=== PATIENT | female | born 1990 | race Hispanic/Latino ===

== ENCOUNTER → 2023-08-19 | Outpatient (CLI) | payer OTHER, SELFPAY ==
--- OUTSIDE RECORDS SUMMARY | 2023-08-19 15:11 | XMS RPT_ITS | CCD ---
Author Name Unknown Address [address] [place] [address] Organization [facility] Care Team Providers Care Wash Helper Name Role Phone Celso Gupta Admitting Unavailable Celso Gupta Attending Unavailable No Doctor Assigned, N[facility] Primary [facility] Unavail able YELENA ESPOSITO Attending Unavailable Results Test Name Value Interpretation Reference Range Facil ity Encounters Encounter Date Encounter Type Care Provider Facility Start: 05-24-2023 End: 05-24-2023 ambulatory YELENA ESPOSITO Facility:[facility] Start: 11-06-2018 End: 11-06-2018 Emergency department patient visit Celso Gupta Facility:[facility] Payers Date Payer Category Payer [employer] 2017 [employer] [id number] 1992 Unknown [id number] Progress note 05-24-2023 Note Date & Type Note Facility 05-24-2023 Note HNO ID: [id number] Author: Yleena Esposito DO Service: ? Author Type: Physician Type: Progress Notes Filed: 05/24/2023 12:54 PM Note Text: Family Medicine History Office Visit DATE of SERVICE: May 24, 2023 TIME of SERVICE: 10:43 AM PRIMARY CARE PHYSICIAN: No primary care provider on file. CHIEF COMPLAINT: Complains of upper respiratory symptoms. HPI: This is a 33 year old female who presents with complains of fatigue, body aches, chills, cough. Has this condition for couple of weeks, 1 week ago was treated with Z-Xavi without any improvement. COVID test/influenza test obtained, will call patient with results and treatment recommendations if needed Meantime patient was started on Mucinex, Medrol Dosepak, albuterol inhaler. She was advised to stay well-hydrated, get plenty of rest, take multivitamins. Advised to stay home, wear mask in public places until she knows results of her COVID/influenza testing. PAST MEDICAL HISTORY Diagnosis Date History of BCG vaccination 07/02/2014 PAST SURGICAL HISTORY Procedure Laterality Date DILATION AND CURETTAGE DXAND/THER NONOBSTETRIC 04/04 Dilation AND curettage FAMILY HISTORY Problem Relation Age of Onset None Mother None Father None Sister None Brother Diabetes Paternal Grandmother Social History Tobacco Use Smoking status: Never Substance Use Topics Alcohol use: No Drug use: No Current Outpatient Medications on File Prior to Visit Medication Sig promethazine (PHENERGAN) 25 mg tablet Take 1 tablet by mouth every 6 hours as needed. (Patient not taking: Reported on 05/24/2023) No current facility-administered medications on file prior to visit. ALLERGIES No Known Allergies BP 102/69 Pulse 97 Temp 37 ?C (98.6 ?F) Wt 76.2 kg (168 lb) LMP 06/25/2014 SpO2 97% Depression: Not on file COMPLETE REVIEW OF SYSTEMS: General: Denies fever,+ chills ,no weight loss, +fatigue. Eyes: Denies visual loss, eye pain,discharge ENT: + upper respiratory infection symptoms. No hearing problems. Skin: Denies rashes and skin lesions. Chest: Denies chest pain,shortness of breath,palpitations. + Dry cough. Abdomen: Denies abdominal pain, nausea, vomiting,diarrhea and constipation. Denies melena/hematochezia. Genitourinary: Denies dysuria, frequency, polyuria. Musculoskeletal: Denies muscle aches,joints pain. Neuropsychiatric: Denies headache.Denies weakness,seizures. Denies memory changes,depression,dizziness,paraesthesia s. PHYSICAL EXAM: CONSTITUTIONAL: WDWN, Alert x 3, in no distress SKIN: Warm, dry, good turgor, no rashes in visible areas EYE: PERRLA. Conjunctiva clear, lids normal ENMT: Lips without lesions, oropharynx erythematous/PND,TM normal b/l Nasal mucosa with edema/erythema and clear nasal drainage. NECK: Trachea midline, no masses, no thyromegaly RESPIRATORY: Unlabored respiratory effort. Lungs clear to auscultation, coarse breathing, no wheezes, no rhonchi CARDIOVASCULAR: Normal S1, S2, no murmur, no edema ABDOMEN: Soft, non-tender, no masses, no hepatosplenomegaly EXTREMITIES: No C/C/E. Pulses normal. NEURO EXAM: No motor or sensory deficit. Normal gait and strength, reflexes are adequate PSYCH: Alert and oriented X 3, normal affect and mood ASSESSMENT AND PLAN: (J06.9) URI with cough and congestion (primary encounter diagnosis) Plan: guaiFENesin (MUCINEX) 600 mg 12 hr tablet, methylPREDNISolone (MEDROL, XAVI,) 4 mg Dose-Pack, albuterol HFA (PROVENTIL HFA, VENTOLIN HFA) 90 mcg/actuation inhaler Advised to stay well-hydrated, get plenty of rest, gargle with warm slightly salty water, take vitamin C /zinc/magnesium supplements, new medication as prescribed, follow-up in 1 week if not improved. I spent a total of 30 minutes on the date of the service which included preparing to see the patient, [id number] patient care, completing clinical documentation, obtaining and/or reviewing separately obtained history, performing a medically appropriate examination, counseling and educating the patient/family/caregiver, ordering medications, tests, or procedures, and care coordination (not separately reported). [facility] Summary Purpose Family History No Family History Records FoundNo Family History Records Found Advance Directives No Advanced Directives Records FoundNo Advanced Directives Records Found Additional Source Comments INFORMATION SOURCE (unrecogn ized section and content) DATE CREATED AUTHOR AUTHOR'S DESMOND ATBARBARA 05/28/2023 [facility] FOR RECORDS PERTAINING TO PATIENTS WHO ARE OR HAVE BEEN ENROLLED IN A CHEMICAL DEPENDENCY/SUBSTANCEABUSE PROGRAM, SOME INFORMATION MAY BE OMITTED. This clinical summary was aggregated from multiple sources. Caution should be exercised in using it in the provision of clinical care. This summary normalizes information from multiple sources, and as a consequence, information in this document may materially change the coding, format and clinical context of patient data. In addition, data may be omitted in some cases. CLINICAL DECISIONS SHOULD BE BASED ON THE PRIMARY CLINICAL RECORDS. [employer] provides no warranty or guarantee of the accuracy or completeness of information in this document.
[2023-08-19 17:36] LABS: Absolute Lymphocyte Count 1.53 X10^3/uL (0.83-4.51); Absolute Neutrophil Count 4.9 X10^3/uL (2.0-7.7); Basophil# 0.04 X10^3/uL; Basophil% 0.6 % (0-1); Eosinophils% 1.4 % (0-5); Hematocrit 40.1 % (37-47); Hemoglobin 13.3 g/dL (12.0-15.0); Lymphocyte # 1.53 X10^3/ul (0.83-4.51); Lymphocyte % 21.8 % (19-41); Mean Corp Hgb Conc 33.2 g/dL (32-36); Mean Corpuscular Hgb 29.5 pg (27.0-32.0); Mean Corpuscular Volume 88.9 fL (81-99); Mean Platelet Vol. 10.4 fl (6.2-12.0); Monocyte# 0.43 X10^3/uL; Monocyte% 6.1 % (0-10); NRBC Flagged by Analyzer 0 % (0-5); Neutrophil # 4.89 X10^3/uL (2.7-7.7); Neutrophil % 69.7 % (47-70); Platelet Count 333 K/mm3 (150-450); RBC Distribution Width CV 12.6 % (11.6-14.6); RBC Distribution Width SD 40.6 fl (35.1-43.9); Red Blood Count 4.51 M/mm3 (4.2-5.4)
[2023-08-19 17:59] LABS: AST(SGOT) 15 U/L (15-37); Alanine Aminotransfer ALT/SGPT 23 U/L (13-56); Albumin, Serum 3.7 g/dL (3.2-5.0); Alkaline Phosphatase 67 U/L (45-117); Anion Gap 7 (5-15); BUN 10 mg/dL (7-18); BUN/Creat Ratio 15.8 RATIO (10-20); Calcium,Total 8.6 mg/dL (8.5-10.1); Chloride 107 mmol/L (98-107); Cholesterol 191 mg/dL (200); Creatinine, Serum 0.63 mg/dL (0.55-1.02); EST Glomerular Filtration Rate 116 mL/min (>60); Est Glom Filt Rate - Afr Amer 141 mL/min (>60); Globulin 3.6 g/dL (2.2-4.2); Glucose 82 mg/dL (74-106); High Density Lipoprotein 58 mg/dL; Potassium 3.6 mmol/L (3.5-5.1); Protein, Total 7.3 g/dL (6.4-8.2); Sodium Level 140 mmol/L (136-145); Thyroid Stim Hormone (TSH) 2.58 uIU/mL (0.358-3.74); Triglycerides 94 mg/dL; Very Low Density Lipoprotein 19 mg/dL (5-40)
== END | disposition home or self-care (01) ==
LOC: MFPLAB 14:45
PROVIDERS: PCP Family Medicine; Visit Provider Family Medicine
DX: E66.9 Obesity, unspecified (principal)
CPT/HCPCS: 36415; 80053; 80061; 84443; 85025

== ENCOUNTER → 2023-10-28 | Outpatient (CLI) | payer OTHER, SELFPAY ==
--- OUTSIDE RECORDS SUMMARY | 2023-10-28 08:21 | XMS RPT_ITS | CCD ---
Author Name Unknown Address [address] [place] [address] Organization [facility] Care Team Providers Care Geosciences Faculty Member Name Role Phone Celso Gupta Admitting Unavailable Celso Gupta Attending Unavailable No Doctor Assigned, Nodr Primary Care Unavail able YELENA ESPOSITO Attending Unavailable Results Test Name Value Interpretation Reference Range Facil ity Encounters Encounter Date Encounter Type Care Provider Facility Start: 05-24-2023 End: 05-24-2023 ambulatory YELENA ESPOSITO Facility:[facility] Start: 11-06-2018 End: 11-06-2018 Emergency department patient visit Celso Gupta Facility:[facility] Payers Date Payer Category Payer [employer] 2017 [employer] [id number] 1992 Unknown [id number] Progress note 05-24-2023 Note Date & Type Note Facility 05-24-2023 Note HNO ID: [id number] Author: Yelena Esposito DO Service: ? Author Type: Physician [...] which included preparing to see the patient, [id number] patient care, completing clinical documentation, obtaining and/or reviewing separately obtained history, performing a medically appropriate examination, counseling and educating the patient/family/caregiver, ordering medications, tests, or procedures, and care coordination (not separately reported). [facility] Summary Purpose Family History No Family History Records FoundNo Family History Records Found Advance Directives No Advanced Directives Records FoundNo Advanced Directives Records Found Additional Source Comments INFORMATION SOURCE (unrecogn ized section and content) DATE CREATED AUTHOR AUTHOR'S DESMOND ATBARBARA 05/28/2023 [facility] FOR RECORDS PERTAINING TO PATIENTS WHO ARE [...] BE BASED ON THE PRIMARY CLINICAL RECORDS. [employer] provides no warranty or guarantee of the accuracy or completeness of information in this document.
[2023-10-28 10:47] LABS: AST(SGOT) 19 U/L (15-37); Alanine Aminotransfer ALT/SGPT 32 U/L (13-56); Cholesterol 221 mg/dL (200); High Density Lipoprotein 42 mg/dL; Triglycerides 187 mg/dL; Very Low Density Lipoprotein 37 mg/dL (5-40)
== END | disposition home or self-care (01) ==
PROVIDERS: PCP Family Medicine
DX: L70.0 Acne vulgaris (principal); L73.8 Other specified follicular disorders; Z79.899 Other long term (current) drug therapy
CPT/HCPCS: 36415; 80061; 84450; 84460

== ENCOUNTER → 2023-11-01 | Outpatient (CLI) | payer OTHER, SELFPAY ==
--- NOTE | 2023-11-01 15:53 | RAD_ITS ---
INDICATION: abdominal pain EXAMINATION/TECHNIQUE: X-RAY - XR Abdomen Series W/ Chest 1 View COMPARISON: No relevant prior comparison study available FINDINGS: --Chest: LINES/DEVICES: None. LUNGS: No consolidation, edema or effusion. No pneumothorax. MEDIASTINUM AND CARDIOVASCULAR STRUCTURES: Cardiac silhouette not enlarged. Central airways and mediastinal contour are unremarkable. BONES AND SOFT TISSUES: No acute findings. --Abdomen: BOWEL GAS PATTERN: Non-obstructive. No bowel or stomach distention. FREE AIR: None visualized. ORGANOMEGALY: Not seen. CALCIFICATIONS: There is a stone in the upper pole of the right kidney measures 3 mm. BONES AND SOFT TISSUES: No acute findings. RAD/Acute Abdomen Inc Chest IMPRESSION: There is a stone in the upper pole of the right kidney measures 3 mm. Electronically Signed: Gladys Ramirez MD at 6:57 EDT ,
[2023-11-01 18:41] LABS: ALB/GLOB Ratio 1.1 RATIO (0.9-2.4); AST(SGOT) 29 U/L (15-37); Alanine Aminotransfer ALT/SGPT 37 U/L (13-56); Alkaline Phosphatase 77 U/L (45-117); Anion Gap 10 (5-15); BUN 9 mg/dL (7-18); BUN/Creat Ratio 12.9 RATIO (10-20); Calcium,Total 9.1 mg/dL (8.5-10.1); Chloride 106 mmol/L (98-107); EST Glomerular Filtration Rate 104 mL/min (>60); Est Glom Filt Rate - Afr Amer 126 mL/min (>60); Globulin 3.8 g/dL (2.2-4.2); Glucose 101 mg/dL (74-106); Potassium 3.6 mmol/L (3.5-5.1); Protein, Total 7.8 g/dL (6.4-8.2); Sodium Level 138 mmol/L (136-145)
[2023-11-01 18:45] LABS: Absolute Lymphocyte Count 1.93 X10^3/uL (0.83-4.51); Absolute Neutrophil Count 4.9 X10^3/uL (2.0-7.7); Basophil# 0.03 X10^3/uL; Basophil% 0.4 % (0-1); Eosinophil# 0.06 X10^3/uL; Eosinophils% 0.8 % (0-5); Lymphocyte # 1.93 X10^3/ul (0.83-4.51); Lymphocyte % 26.5 % (19-41); Mean Corp Hgb Conc 34.2 g/dL (32-36); Mean Corpuscular Hgb 30.2 pg (27.0-32.0); Mean Corpuscular Volume 88.2 fL (81-99); Mean Platelet Vol. 10.6 fl (6.2-12.0); Monocyte# 0.39 X10^3/uL; Monocyte% 5.3 % (0-10); NRBC Flagged by Analyzer 0 % (0-5); Neutrophil # 4.85 X10^3/uL (2.7-7.7); Neutrophil % 66.6 % (47-70); Platelet Count 353 K/mm3 (150-450); RBC Distribution Width CV 12.4 % (11.6-14.6); RBC Distribution Width SD 39.7 fl (35.1-43.9); Red Blood Count 4.31 M/mm3 (4.2-5.4); White Blood Count 7.3 K/mm3 (4.4-11.0)
== END | disposition home or self-care (01) ==
LOC: MTLAB 15:51
PROVIDERS: PCP Family Medicine; Referring Provider Family Medicine; Visit Provider Family Medicine
DX: R10.9 Unspecified abdominal pain (principal)
CPT/HCPCS: 36415; 74022; 80053; 85025

== ENCOUNTER → 2024-09-27 | Outpatient (CLI) | payer OTHER, SELFPAY ==
--- NOTE | 2024-09-27 14:32 | US_ITS ---
PROCEDURE: BREAST LIMITED UNILATERAL REASON FOR EXAM: Palpable lump in the left upper outer quadrant. TECHNIQUE: Targeted left breast ultrasound. COMPARISON: Comparison is made with prior mammogram done earlier in the day. FINDINGS: LEFT: Left breast ultrasound was targeted to the upper lateral quadrant of the left breast.. The breast tissue appears sonographically normal. There is a 1 cm x 0.7 cm x 0.6 cm benign-appearing lymph node at the 1 o'clock position of the breast at 9 cm from the nipple.. US/Breast Limited Unilateral IMPRESSION: Findings suggestive of a 1 cm by 0.7 cm x 0.6 cm benign lymph node at the 1 o'c lock position of the breast at 9 cm from nipple. Follow-up code: Routine Follow-up Reading Location: [place] [address]
--- NOTE | 2024-09-27 14:32 | BI_ITS ---
PROCEDURE: DIAG MAMM W/CAD, BILAT REASON FOR EXAM: Left breast lump. TECHNIQUE: Bilateral diagnostic digital breast tomosynthesis with 2D and 3D images. Computer aided detection. COMPARISON: Baseline examination. FINDINGS: The breasts are heterogeneously dense which may obscure small masses. No suspicious mass or microcalcifications seen. With the patient's history of a palpable lump in the upper-outer quadrant of the left breast, correlation with ultrasound recommended. BI/DIAG MAMM W/CAD, BILAT IMPRESSION: BI-RADS 0: INCOMPLETE - NEED ADDITIONAL IMAGING EVALUATION. Follow-up code: Ultrasound Recommended Reading Location: [id number]
== END | disposition home or self-care (01) ==
PROVIDERS: PCP Family Medicine
DX: N63.20 Unspecified lump in the left breast, unspecified quadrant (principal)
CPT/HCPCS: 76642; 77062; 77066; G0279

== ENCOUNTER → 2024-10-02 | Outpatient (CLI) | payer OTHER, SELFPAY ==
--- NOTE | 2024-10-02 09:18 | RAD_ITS ---
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 TECHNIQUE: Frontal and lateral views of the chest. COMPARISON: PA chest view of 11/01/2023. FINDINGS: The heart size is normal. The mediastinal contour is unremarkable. The lungs are clear. The bones are unremarkable. RAD/Chest PA and Lateral IMPRESSION: NEGATIVE CHEST. Stable examination. Reading Location: [id number]
== END | disposition home or self-care (01) ==
LOC: RAD 09:13
PROVIDERS: PCP Family Medicine; Referring Provider Family Medicine; Visit Provider Family Medicine
DX: R76.11 Nonspecific reaction to tuberculin skin test without active tuberculosis (principal)
CPT/HCPCS: 71046

== ENCOUNTER → 2024-11-22 | Outpatient (CLI) | payer OTHER, SELFPAY ==
--- NOTE | 2024-11-22 16:34 | RAD_ITS ---
EXAM: XR Abdomen, 1 View CLINICAL INDICATION: LLQ PAIN TECHNIQUE: Frontal supine view of the abdomen/pelvis. COMPARISON: No relevant prior studies available. FINDINGS: GASTROINTESTINAL TRACT: Unremarkable. No dilation. BONES/JOINTS: Unremarkable. No acute fracture. RAD/Abdomen Single View IMPRESSION: Nonobstructive bowel gas pattern. [facility]
[2024-11-22 18:00] LABS: Hematocrit 37.9 % (37-47); Mean Corp Hgb Conc 34.3 g/dL (32-36); Mean Corpuscular Hgb 29.3 pg (27.0-32.0); Mean Corpuscular Volume 85.6 fL (81-99); Platelet Count 361 K/mm3 (150-450); RBC Distribution Width CV 12.2 % (11.6-14.6); RBC Distribution Width SD 38.2 fl (35.1-43.9); Red Blood Count 4.43 M/mm3 (4.2-5.4)
[2024-11-22 18:21] LABS: ALB/GLOB Ratio 1.5 RATIO (0.9-2.4); AST(SGOT) 19 U/L (<=31); Alanine Aminotransfer ALT/SGPT 14 U/L (<=34); Albumin, Serum 4.2 g/dL (3.5-5.0); Alkaline Phosphatase 74 U/L (35-104); Anion Gap 12 (5-15); BUN 10 mg/dL (4-19); BUN/Creat Ratio 14.8 RATIO (10-20); Calcium,Total 9.2 mg/dL (7.6-11.0); Carbon Dioxide 24.8 mmol/L (21.0-32.0); Chloride 104 mmol/L (98-108); Creatinine, Serum 0.65 mg/dL (0.70-1.20); EST Glomerular Filtration Rate 120 (>60); Globulin 2.8 g/dL (2.2-4.2); Glucose 105 mg/dL (70-99); Potassium 3.7 mmol/L (3.3-5.1); Sodium Level 141 mmol/L (133-145); Total Bilirubin 0.62 mg/dL (0.00-1.30)
== END | disposition home or self-care (01) ==
LOC: MTRAD 16:33
PROVIDERS: PCP Family Medicine
DX: R10.32 Left lower quadrant pain (principal)
CPT/HCPCS: 36415; 74018; 80053; 85027

== ENCOUNTER → 2024-12-03 | Outpatient (CLI) | payer OTHER, SELFPAY ==
--- NOTE | 2024-12-03 10:03 | US_ITS ---
PROCEDURE: ABDOMEN COMPLETE 12/03/2024 REASON FOR EXAM: R10.32 - LEFT LOWER QUADRANT PAIN TECHNIQUE: Complete abdominal ultrasound boyd-scale images with color doppler. PATIENT PREPARATION: Per protocol FINDINGS: Study is limited by bowel gas. Liver: The liver appears diffusely increased in echogenicity which can be seen with hepatic steatosis or other hepatocellular disease. The liver surface contour appears smooth. No evidence of intrahepatic biliary ductal dilation. Hepatic color flow is present. Hepatic flow within the portal vein appears hepatopetal as expected. Gallbladder: The gallbladder appears within limits without stones, wall thickening or pericholecystic free fluid. Wall measures 2 mm. Report of a negative sonographic Johnson's sign. Common bile duct: 5 mm . Pancreas: Visualized pancreas appears within limits without evidence of pancreatic ductal dilation. Kidneys: The right kidney measures 11 x 5.1 x 4 cm with a cortical thickness of 1.3 cm. The left kidney measures 11.3 x 4.8 x 5 cm with a cortical thickness of 1.3 cm. Lower pole of the right kidney is not well seen due to bowel gas. The kidneys otherwise appear within limits without hydronephrosis, stones or perinephric edema seen. Spleen: Measures 9.3 x 4.8 x 3.9 cm 6 mm splenic calcification may represent calcified granuloma. Aorta: Proximal 1.6 x 1.7, mid 1.5 x 2.0 and distal 1.3 x 1.8 cm IVC: Appears patent No free fluid seen US/Abdomen Complete IMPRESSION: Lower pole of the right kidney is not well seen due to bowel gas. The liver appears diffusely increased in echogenicity which can be seen with he patic steatosis or other hepatocellular disease. Reading Location: [id number]
== END | disposition home or self-care (01) ==
LOC: US 10:01
PROVIDERS: PCP Family Medicine
DX: R10.32 Left lower quadrant pain (principal)
CPT/HCPCS: 76700

== ENCOUNTER → 2024-12-05 | Outpatient (CLI) | payer OTHER, SELFPAY ==
[2024-12-05 11:45] LABS: AST(SGOT) 17 U/L (<=31); Alanine Aminotransfer ALT/SGPT 14 U/L (<=34); Albumin, Serum 4.2 g/dL (3.5-5.0); Alkaline Phosphatase 76 U/L (35-104); Globulin 2.8 g/dL (2.2-4.2); Total Bilirubin 0.99 mg/dL (0.00-1.30)
== END | disposition home or self-care (01) ==
PROVIDERS: PCP Family Medicine
DX: K76.0 Fatty (change of) liver, not elsewhere classified (principal)
CPT/HCPCS: 36415; 80076

== ENCOUNTER → 2025-05-24 | Outpatient (CLI) | payer OTHER, SELFPAY ==
[2025-05-24 19:39] LABS: AST(SGOT) 21 U/L (<=31); Alanine Aminotransfer ALT/SGPT 21 U/L (<=34); Albumin, Serum 4.2 g/dL (3.5-5.0); Alkaline Phosphatase 65 U/L (35-104); Anion Gap 13 (5-15); BUN 10 mg/dL (4-19); BUN/Creat Ratio 17.1 RATIO (10-20); Calcium,Total 8.9 mg/dL (7.6-11.0); Carbon Dioxide 22.2 mmol/L (21.0-32.0); Chloride 105 mmol/L (98-108); Globulin 2.4 g/dL (2.2-4.2); Glucose 86 mg/dL (70-99); Potassium 3.4 mmol/L (3.3-5.1)
== END | disposition home or self-care (01) ==
LOC: MTLAB 14:11
PROVIDERS: PCP Family Medicine; Referring Provider Family Medicine; Visit Provider Family Medicine
DX: F41.9 Anxiety disorder, unspecified (principal); E55.9 Vitamin D deficiency, unspecified
CPT/HCPCS: 36415; 80053; 84443